=== PATIENT | male | born 1960 | race Caucasian/White ===

== ENCOUNTER 2020-11-07 11:56 | Emergency (ER) | payer OTHER ==
[~2020-11-07] VITALS: Ht 170.2 cm; Wt 68.9 kg
[2020-11-07] MEDS ORDERED: LEVOFLOXACIN250 MG PO (12:26)
[2020-11-07] MEDS ORDERED: CLEOCIN HCL150 MG PO (12:26)
== END 2020-11-07 12:39 | disposition home or self-care (01) ==
LOC: ER 12:27
DX: L02.414 Cutaneous abscess of left upper limb (principal); E11.9 Type 2 diabetes mellitus without complications; Z98.0 Intestinal bypass and anastomosis status
CPT/HCPCS: 99282